=== PATIENT | female | born 1960 | race Caucasian/White ===

== ENCOUNTER 2020-02-09 18:01 | Outpatient (CLI) | payer MEDICARE, SELFPAY ==
--- NOTE | 2020-02-09 | XR_ITS ---
WS: [id number] LEFT SHOULDER: 3 VIEW(S) TECHNIQUE: Internal and external rotation with Y view. HISTORY: PAIN COMPARISON: None available. No fracture or dislocation or soft tissue abnormality. Glenohumeral and AC joints are unremarkable. Calcific deposits adjacent to the lateral humeral head. XR/XR shoulder LT min 2V* [id number] IMPRESSION: Mild LEFT rotator cuff calcific tendinitis.
--- NOTE | 2020-02-09 | XR_ITS ---
WS: [id number] LEFT HUMERUS: 2 VIEW(S) TECHNIQUE: AP and lateral. HISTORY: PAIN COMPARISON: None available. No acute fracture or dislocation. No joint or soft tissue abnormality. 5 mm calcification density over the posterior lateral humeral head. XR/[place] [id number] IMPRESSION: Calcific tendinitis LEFT rotator cuff.
== END 2020-02-09 18:02 | disposition home or self-care (01) ==
PROVIDERS: PCP Nurse Practitioner Family; Visit Provider Nurse Practitioner Family
DX: M79.602 Pain in left arm (principal); M75.32 Calcific tendinitis of left shoulder
CPT/HCPCS: 73030; 73060

== ENCOUNTER → 2020-02-20 15:17 | Outpatient (BNVA) | payer MEDICARE, SELFPAY | PROVIDERS: PCP Nurse Practitioner Family; Visit Provider Nurse Practitioner Family | DX: M79.673 Pain in unspecified foot (principal) | CPT/HCPCS: 73630 ==

== ENCOUNTER 2023-06-17 12:37 | Outpatient (CLI) | payer MEDICARE, SELFPAY ==
--- NOTE | 2023-06-17 13:11 | MM_ITS ---
WS: [id number] DIAGNOSTIC LEFT DIGITAL TOMOSYNTHESIS MAMMOGRAPHY WITH CAD. LEFT breast ultrasound, limited HISTORY: ANNUAL - HX BR CA;LT MST/LUMP BEHIND NIPPLE COMPARISON: 03/25/2019 and 03/12/2019 Technique: CC, MLO and ML views. Spot compression LEFT CC. Breast composition: The breasts are heterogeneously dense, which may obscure small masses. There is a biopsy clip in the anterior LEFT breast just posterior to the nipple. Just inferior to the biopsy cl ip there is a 7 mm partially obscured nodule. This corresponds to the palpable abnormality. Ultrasoun d to follow. LEFT breast ultrasound, limited. In the area of the palpable mass there is a cyst measuring 9 x 8 x 8 mm which corresponds to the mamm ographic abnormality also. There is an adjacent duct which is mildly prominent. No soft tissue solid masses are identified. IMPRESSION: MM/[place] [id number] BI-RADS: 2-Benign FOLLOW UP: 1 Year Follow-up Palpable area LEFT breast corresponds to a benign cyst.
--- NOTE | 2023-06-17 13:44 | US_ITS ---
WS: [id number] DIAGNOSTIC LEFT DIGITAL TOMOSYNTHESIS MAMMOGRAPHY WITH CAD. LEFT breast ultrasound, limited HISTORY: ANNUAL - HX BR CA;LT MST/LUMP BEHIND NIPPLE COMPARISON: 03/25/2019 and 03/12/2019 Technique: CC, MLO and ML views. Spot compression LEFT CC. Breast composition: The breasts are heterogeneously dense, which may obscure small masses. There is a biopsy clip in the anterior LEFT breast just posterior to the nipple. Just inferior to the biopsy cl ip there is a 7 mm partially obscured nodule. This corresponds to the palpable abnormality. Ultrasoun d to follow. LEFT breast ultrasound, limited. In the area of the palpable mass there is a cyst measuring 9 x 8 x 8 mm which corresponds to the mamm ographic abnormality also. There is an adjacent duct which is mildly prominent. No soft tissue solid masses are identified. IMPRESSION: US/US breast LT limited* [id number] BI-RADS: 2-Benign FOLLOW UP: 1 Year Follow-up Palpable area LEFT breast corresponds to a benign cyst.
== END 2023-06-17 12:38 | disposition home or self-care (01) ==
PROVIDERS: PCP Nurse Practitioner Family; Visit Provider Nurse Practitioner Family
DX: N63.42 Unspecified lump in left breast, subareolar (principal); Z85.3 Personal history of malignant neoplasm of breast; Z90.12 Acquired absence of left breast and nipple
CPT/HCPCS: 76642; 77061; G0279

== ENCOUNTER 2025-02-11 17:26 | Inpatient (IN) | payer MEDICARE, SELFPAY ==
[2025-02-11] VITALS (11 sets, daily range): BP systolic 130–159; BP diastolic 75–93; PULSE 81–115; RESP 18–20; TEMP 37.2–39.4; O2SAT 90–94; BMI 30.2
--- NOTE | 2025-02-11 17:42 | XRR_ITS ---
PROCEDURE INFORMATION: Exam: XR Chest Exam date and time: 02/11/2025 5:43 PM Age: 64 years old Clinical indication: Other: Possible sepsis TECHNIQUE: Imaging protocol: Radiologic exam of the chest. Views: 1 view. COMPARISON: [place] [id number] 02/09/2020 6:34 PM FINDINGS: Lungs: Mild ill-defined opacity at the left base partially obscuring the left hemidiaphragm. No consolidation on the right. Pleural spaces: No pneumothorax or large effusion. Heart/Mediastinum: Cardiomediastinal contours are unremarkable. Bones/joints: Bones are unremarkable. XR/XR chest 1V portable [id number] IMPRESSION: Mild nonspecific opacity at the left lung base partially obscuring the left hemidiaphragm. Possible atelectasis or infection.
--- NOTE | 2025-02-11 17:43 | ECG_ITS ---
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 Measurements Intervals [place] Rate: 113 P: 39 DC: 165 QRS: 50 QRSD: 93 T: 20 QT: 269 QTc: 370 Interpretive Statements SINUS TACHYCARDIA NONSPECIFIC T-WAVE ABNORMALITY ABNORMAL RHYTHM ECG Compared to ECG 12/25/2014 09:12:31 T-wave abnormality now present Sinus rhythm no longer present Electronically Signed On 02-12-2025 14:33:33 CDT by Soraida Herrera M.D. [id number]
[2025-02-11] MEDS: sodium chloride 0.9% 2,245.29 ML 2245.29 ML IV (18:03)
[2025-02-11 18:09] LABS: Basophils # 0.1 10^3/uL (0.0-0.1); Basophils % 0.6 %; Eosinophils # 0.1 10^3/uL (0.0-0.8); Eosinophils % 0.5 %; Hematocrit 41.9 % (36-47); Lymphocytes % 6.7 %; Mean Corpuscular HGB Conc 32.5 g/dL (30-55); Mean Corpuscular Hemoglobin 27.1 pg (27-33); Mean Corpuscular Volume 83.6 fl (85-98); Mean Platelet Volume 11.3 fL (7.4-10.4); Monocytes # 0.6 10^3/uL (0.2-0.9); Monocytes % 3.8 %; Neutrophils # 13.31 10^3/uL (1.8-7.7); Neutrophils % 86.3 %; Nucleated Red Blood Cells % 0 %; Platelet Count 312 10^3/cmm (157-399); Red Blood Count 5.01 10^6/uL (3.85-5.65); Red Cell Distribution Width 14.5 % (12.1-15.1); White Blood Count 15.43 10^3/uL (3.29-11.43)
--- NOTE | 2025-02-11 18:15 | PC.NURSE ---
pt o2 sat down to 85%, pt placed on 2LNC.
--- NOTE | 2025-02-11 18:19 | W.ED.SOB ---
HPI - SOB/Dyspnea General: Chief Complaint: Shortness of Breath/Dyspnea Stated Complaint: chest congestion, sob Time Seen by Provider: 02/11/25 17:38 History of Present Illness: HPI Narrative: 64-year-old female with a history of hypothyroidism and hypertension who presents emergency room with shortness of breath. Says this been going on since yesterday. She has had some vomiting. Production of sputum with a cough. She is febrile on presentation and tachycardic. Related Data Home Medications ?Medication ?Instructions ?Recorded ?Confirmed atenolol 25 mg tablet 25 mg PO DAILY 02/20/20 02/20/20 levothyroxine 137 mcg tablet 137 mcg PO DAILY 02/20/20 02/20/20 (Levo-T) nifedipine 30 mg tablet,extended 30 mg PO DAILY 02/20/20 02/20/20 release Allergies Allergy/AdvReac Type Severity Reaction Status Date / Time vancomycin Allergy AIDE-Swell Verified 02/11/25 17:31 Lip/Tongue/Throat PFSH ED PFSH: Social History (Updated 02/20/20 @ 14:52 by Nathaly Ferraro LPN) Smoking and tobacco/nicotine status: never used tobacco/nicotine Physical Exam Narrative: EXAM NARRATIVE: General: Alert, no acute distress. Skin: Warm, dry. Head: Normocephalic, atraumatic. Neck: Supple, trachea midline. Eye: Extraocular movements are intact. Ears, nose, mouth and throat: mucosa moist. Cardiovascular: Regular, tachycardic, normal peripheral perfusion. Respiratory: Lungs are clear to auscultation, respirations are non-labored, breath sounds are equal, Symmetrical chest wall expansion. Gastrointestinal: Soft, Nontender, Non distended Musculoskeletal: Normal ROM, no deformity. Neurological: Alert and oriented, No focal neurological deficit observed. Psychiatric: Cooperative, appropriate mood & affect. Course Vital Signs: Vital signs: Vital Signs Temperature 103.0 F H 02/11/25 17:30 Pulse Rate 105 H 02/11/25 21:30 Respiratory Rate 18 02/11/25 18:24 Blood Pressure 159/93 02/11/25 21:30 Pulse Oximetry 92 02/11/25 21:30 Oxygen Delivery Me thod Nasal Cannula 02/11/25 21:30 Oxygen Flow Rate 5 02/11/25 18:24 MDM - SOB/Dyspnea Medical Decision Making Differential diagnosis for patient with shortness of breath includes but is not limited to and based on the above HPI, review of systems and physical exam: Pneumonia. Bronchitis. Asthma or COPD with acute exacerbation. Acute coronary syndrome / [place]. Pulmonary embolism. Anxiety. Congestive heart failure. Viral infections including influenza and Covid-19. Atrial fibrillation. Anxiety. Pleural effusion. Pneumothorax. Orders placed to evaluate differential diagnosis based on the above differential, HPI and physical exam Chest x-ray: Nonspecific opacity at the left lung base. Possible atelectasis or infection.. No pneumothorax. This was reviewed and interpreted by myself the emergency room physician. I also reviewed the radiology report. AB.4 02/26/1956 with an O2 sat of 88% on 3 L nasal cannula. Oxygen was turned up at this time. Hypoxemia without hypercapnia. Lab Review: Laboratory results were reviewed and interpreted by myself the emergency room physician. Leukocytosis with white count 15,000. No anemia. Renal function is mildly elevated at 17 and 1.2. No previous lab work for comparison. CTA of the chest was ordered secondary to hypoxemia, tachycardia and an elevated D-dimer. No PE. There is opacities in the right middle lobe consistent with bronchiolitis. Dependent consolidation and volume loss in both lower lobes that is likely infectious. Small pleural effusions bilaterally. This was reviewed and interpreted by myself the emergency room physician. I also reviewed the radiology report. I reviewed the patient's medical record. Reexamination: Patient is continue to require 5 L nasal cannula with O2 sats in the low 90s. No altered mental status. No focal motor deficits. Consultation: I spoke with Dr. Plummer who is on-call for the hospitalist service who agrees to admission. Assessment and plan: Pneumonia Hypoxemia Pleural effusions ?Patient requiring 5 L nasal cannula with O2 sats in the low 90s. -Lactic acid is 1.9. However white count is up. Patient is febrile. She was little tachycardic but her blood pressures remain normal. She does have some leukocytosis. Borderline for sepsis. -2.25 L normal saline bolus. 30 mL/kg normal saline bolus -antibiotics were administered. Rocephin and azithromycin. -Sepsis quality measures. -Lactic acid with a reflex was ordered. -Blood cultures were ordered. -I discussed the patient with the hospitalist on-call who is admitting the patient. - Discussed findings and plan with patient. Answered any questions. - All laboratory values were reviewed and interpreted personally by myself, the ER physician - All imaging was reviewed and interpreted personally by myself, the ER physician. - Evaluation and treatment of this problem were appropriate in the emergency setting Critical care -I spent a total of >35 minutes of critical care time managing the patient, independent of any other practitioner. -The time involved in the performance of separately reportable procedures was not counted towards critical care time. Lab Data 02/11/25 17:50 02/11/25 20:44 Labs/Radiology: Radiology Impressions Chest X-Ray 02/11/25 17:42 IMPRESSION: Mild nonspecific opacity at the left lung base partially obscuring the left hemidiaphragm. Possible atelectasis or infection. Chest CTA 02/11/25 18:30 IMPRESSION: 1. No pulmonary embolism. 2. Dependent consolidation and volume loss in both lower lobes. Some component of atelectasis is present. Superimposed infection is not excluded. 3. Mild opacity in the right middle lobe consistent with low-grade infectious bronchiolitis. 4. Small simple dependent bilateral pleural effusions. 5. Incidental findings above. Laboratory Results WBC 15.43 10^3/uL (3.29-11.43) H 02/11/25 17:50 RBC 5.01 10^6/uL (3.85-5.65) 02/11/25 17:50 Hgb 13.60 g/dL (11.27-16.99) 02/11/25 17:50 Hct 41.9 % (36-47) 02/11/25 17:50 MCV 83.6 fl (85-98) L 02/11/25 17:50 MCH 27.1 pg (27-33) 02/11/25 17:50 MCHC 32.5 g/dL (30-55) 02/11/25 17:50 RDW 14.5 % (12.1-15.1) 02/11/25 17:50 Plt Count 312 10^3/cmm (157-399) 02/11/25 17:50 MPV 11.3 fL (7.4-10.4) H 02/11/25 17:50 Neut % (Auto) 86.3 % 02/11/25 17:50 Lymph % (Auto) 6.7 % 02/11/25 17:50 Baker % (Auto) 3.8 % 02/11/25 17:50 Eos % (Auto) 0.5 % 02/11/25 17:50 Baso % (Auto) 0.6 % 02/11/25 17:50 Neut # (Auto) 13.31 10^3/uL (1.8-7.7) H 02/11/25 17:50 Lymph # (Auto) 1.0 10^3/uL (0.8-4.8) 02/11/25 17:50 Baker # (Auto) 0.6 10^3/uL (0.2-0.9) 02/11/25 17:50 Eos # (Auto) 0.1 10^3/uL (0.0-0.8) 02/11/25 17:50 Baso # (Auto) 0.1 10^3/uL (0.0-0.1) 02/11/25 17:50 Nucleated RBC % (auto) 0 % 02/11/25 17:50 Nucleated RBCs # 0.0 /100WBC 02/11/25 17:50 D-Dimer 3.49 ug/mLFEU (0-0.59) H 02/11/25 17:50 Specimen Type Arterial 02/11/25 18:08 Sample Site Radial, left 02/11/25 18:08 ABG pH 7.46 (7.35-7.45) H 02/11/25 18:08 ABG pCO2 28.1 mmHg (35-45) L 02/11/25 18:08 ABG pO2 54.1 mmHg (80.0-100.0) L 02/11/25 18:08 ABG PO2/FiO2 Ratio 169 02/11/25 18:08 ABG HCO3 19.8 mmol/L (22-26) L 02/11/25 18:08 ABG O2 Saturation 88.9 02/11/25 18:08 ABG Base Excess -2.8 mmol/L (-2.0-2.0) L 02/11/25 18:08 Kevin Test Pos 02/11/25 18:08 A-a O2 Gradient 17.8 mmHg (5-10) H 02/11/25 18:08 Hematocrit 40.7 % (37-47) 02/11/25 18:08 Hgb O2 Saturation 88.3 % (95-100) L 02/11/25 18:08 Carboxyhemoglobin 0.2 %THgb (0.4-20.1) L 02/11/25 18:08 Methemoglobin 0.6 % (0.4-1.5) 02/11/25 18:08 Total Hemoglobin 13.3 g/dL (12-16) 02/11/25 18:08 Sodium 137.0 mmol/L (131-143) 02/11/25 18:08 Potassium 3.4 mmol/L (3.5-5.0) L 02/11/25 18:08 Glucose 151.0 mg/dL (70-115) H 02/11/25 18:08 Ionized Calcium 1.0 mmol/L (1.1-1.4) L 02/11/25 18:08 O2 Delivery Device Nc 02/11/25 18:08 O2 Liters/Min 3.0 % 02/11/25 18:08 FiO2 32.0 % 02/11/25 18:08 Community Resource Consultant ID [place] 02/11/25 18:08 Sodium 135 mmol/L (136-145) L 02/11/25 20:44 Potassium 3.6 mmol/L (3.5-5.1) 02/11/25 20:44 Chloride 103 mmol/L (98-107) 02/11/25 20:44 Carbon Dioxide 17 mmol/L (22-29) L 02/11/25 20:44 Anion Gap 18.6 (5-19) 02/11/25 20:44 BUN 17 mg/dL (8-23) 02/11/25 20:44 Creatinine 1.2 mg/dL (0.5-0.9) H 02/11/25 20:44 GFR Calculation 44.9 mL/min (90-130) L 02/11/25 20:44 Glucose 113 mg/dL (65-115) 02/11/25 20:44 Calculated Osmolality 282 mOsm/kg (285-295) L 02/11/25 20:44 Lactic Acid 1.9 mmol/L (0.5-2.2) 02/11/25 17:50 Calcium 7.3 mg/dL (8.5-10.5) L 02/11/25 20:44 Total Bilirubin 0.3 mg/dL (0.15-1.2) 02/11/25 20:44 AST 18 U/L (0-32) 02/11/25 20:44 ALT 18 U/L (0-33) 02/11/25 20:44 Alkaline Phosphatase 129 U/L (35-105) H 02/11/25 20:44 Troponin T Baseline 8 ng/L (0-10) 02/11/25 17:50 Troponin T 120 Minute 9.98 ng/L (0-10) 02/11/25 19:46 Delta Troponin T 1.98 ABS# (0-10) 02/11/25 19:46 C-Reactive Protein 203.3 mg/L (0.0-4.9) H 02/11/25 20:44 Total Protein 6.8 g/dL (6.6-8.7) 02/11/25 20:44 Albumin 3.5 g/dL (3.5-5.2) 02/11/25 20:44 Globulin 3.3 g/dL (1.3-4.6) 02/11/25 20:44 Procalcitonin 0.27 ng/mL (0-0.5) 02/11/25 20:44 Urine Color Yellow (Yellow) 02/11/25 21:20 Urine Appearance Clear (CLEAR) 02/11/25 21:20 Urine pH 5.5 (5-7) 02/11/25 21:20 Ur Specific [place] 1.024 (1.005-1.030) 02/11/25 21:20 Urine Protein Trace (Negative) A 02/11/25 21:20 Urine Glucose (UA) Negative (Normal) 02/11/25 21:20 Urine Ketones Negative (Negative) 02/11/25 21:20 Urine Blood Negative (Negative) 02/11/25 21:20 Urine Nitrate Negative (Negative) 02/11/25 21:20 Urine Bilirubin Negative (Negative) 02/11/25 21:20 Urine Urobilinogen 0.2 mg/dL (Negative) 02/11/25 21:20 Ur Leukocyte Esterase Negative (Negative) 02/11/25 21:20 Urine RBC 0-2 /hpf (0-2) 02/11/25 21:20 Urine WBC 0-5 /hpf (0-5) 02/11/25 21:20 Ur Squamous Epith Cells 0-5 /hpf (0-5) 02/11/25 21:20 Amorphous Sediment Not Reportable 02/11/25 21:20 Urine Bacteria None seen /hpf (NONE) 02/11/25 21:20 Hyaline Casts 0.81 /lpf 02/11/25 21:20 All radiology interpretation(s) finalized by discharge Discharge Plan Discharge Patient Disposition: Admitted As Inpatient Clinical Impression: Pneumonia, Hypoxemia Condition: Stable Coding Level of Care Code ED Web Services Developer for Dyan Phillip
[2025-02-11 18:20] LABS: ABG PCO2 28.1 mmHg (35-45); ABG PH Result 7.46 (7.35-7.45); Alveolar-Arterial Oxygen Gradi 17.8 mmHg (5-10); Arterial Blood Gas Hematocrit 40.7 % (37-47); Base Excess ABG -2.8 mmol/L (-2.0-2.0); Blood Gas Allen Test Pos; Blood Gas Operator Identificat MONRO; Blood Gas Sample Site Radial, left; Blood Gas Sample Type Arterial; Carboxyhemoglobin 0.2 %THgb (0.4-20.1); HCO3 ABG 19.8 mmol/L (22-26); HGB O2 Sat 88.3 % (95-100); Methemoglobin 0.6 % (0.4-1.5); Oxygen Device NC; Oxygen Saturation ABG 88.9; PO2 ABG 54.1 mmHg (80.0-100.0); PO2 FiO2 Ratio Arterial Blood 169; Potassium Level - ABG 3.4 mmol/L (3.5-5.0); Total Hemoglobin 13.3 g/dL (12-16)
--- NOTE | 2025-02-11 18:25 | PC.NURSE ---
pt NC up to 5L NC to maintain O2 sat above 90%. currently 92% 5LNC.
--- NOTE | 2025-02-11 18:30 | CTR_ITS ---
PROCEDURE INFORMATION: Exam: CTA Chest With Contrast Exam date and time: 02/11/2025 7:29 PM Age: 64 years old Clinical indication: Abnormal findings; Abnormal diagnostic tests; Elevated d-dimer; Shortness of breath and other: Tachycardia; Prior surgery; Surgery date: 6+ months; Surgery type: Mastectomy with augmentation; SOB with tachycardia and elevated dimer. History of breast cancer. ; Additional info: Hypoxemia, tachycardia TECHNIQUE: Imaging protocol: Computed tomographic angiography of the chest with contrast. Exam focused on the arteries. 3D rendering (Not supervised by radiologist): MIP and/or 3D reconstructed images were created by the technologist. Radiation optimization: All CT scans at this facility use at least one of these dose optimization techniques: automated exposure control; mA and/or kV adjustment per patient size (includes targeted exams where dose is matched to clinical indication); or iterative reconstruction. Contrast material: OMNI 350; Contrast volume: 52 ml; Contrast route: INTRAVENOUS (IV); COMPARISON: CR (CHEST, ) 02/11/2025 5:43 PM RADIATION DOSE METRICS: Total DLP (mGy-cm): 346.98 FINDINGS: Pulmonary arteries: The pulmonary arteries are adequately opacified for evaluation to the subsegmental level. There is no filling defect to suggest embolism. Aorta: There is mild aortic atherosclerotic disease. Lungs: Mild volume loss and dependent consolidation in both lower lobes. Mild focal ill-defined branching reticulonodular opacity in the inferomedial right lower lobe right middle lobe visible on axial series 6, image 244 through 260. Trachea and bronchi are normal. Pleural spaces: Small simple dependent bilateral pleural effusions. No pneumothorax. Heart: Trace pericardial effusion. There is mild cardiac enlargement. Lymph nodes: There is no mediastinal or hilar lymphadenopathy. Diaphragm: There is a small sliding-type hiatal hernia. Liver: There is diffuse low-attenuation of the liver relative to the spleen consistent with fatty infiltration. Bones/joints: Bones are unremarkable. Soft tissues: Right mastectomy and subpectoral saline breast implant without extracapsular rupture. CT/CT angio chest PE protcl [id number] IMPRESSION: 1. No pulmonary embolism. 2. Dependent consolidation and volume loss in both lower lobes. Some component of atelectasis is present. Superimposed infection is not excluded. 3. Mild opacity in the right middle lobe consistent with low-grade infectious bronchiolitis. 4. Small simple dependent bilateral pleural effusions. 5. Incidental findings above.
[2025-02-11 18:57] LABS: Troponin(5th) Baseline 8 ng/L (0-10)
[2025-02-11 18:59] LABS: D Dimer 3.49 ug/mLFEU (0-0.59)
[2025-02-11 19:00] LABS: Lactic Sepsis W/Reflex 1.9 mmol/L (0.5-2.2)
[2025-02-11] MEDS: iohexol 350 mg/mL 500 mL Btl (per mL) IV (19:29)
--- NOTE | 2025-02-11 19:43 | ECG_ITS ---
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 Measurements Intervals [place] Rate: 105 P: 0 NE: 0 QRS: 59 QRSD: 90 T: 5 QT: 301 QTc: 398 Interpretive Statements SUPRAVENTRICULAR TACHYCARDIA NONSPECIFIC T-WAVE ABNORMALITY ABNORMAL RHYTHM ECG Compared to ECG 02/11/2025 17:42:58 Sinus tachycardia no longer present T-wave abnormality still present Baseline artifacts, need to repeat Electronically Signed On 02-12-2025 14:37:15 CDT by Soraida Herrera M.D. [email or web address] [id number]
[2025-02-11 20:11] LABS: Troponin 5 2HR 9.98 ng/L (0-10); Troponin 5 2HR Delta 1.98 ABS# (0-10)
[2025-02-11 21:06] LABS: Alanine Aminotransferase 18 U/L (0-33); Albumin Level 3.5 g/dL (3.5-5.2); Alkaline Phosphatase 129 U/L (35-105); Anion Gap 18.6 (5-19); Aspartate Amino Transferase 18 U/L (0-32); Blood Urea Nitrogen 17 mg/dL (8-23); C Reactive Protein 203.3 mg/L (0.0-4.9); Calcium 7.3 mg/dL (8.5-10.5); Carbon Dioxide 17 mmol/L (22-29); Chloride 103 mmol/L (98-107); Creatinine Clr Calc Pharmacy 43.6785; Globulin 3.3 g/dL (1.3-4.6); Glomerular Filtration Rate 44.9 mL/min (90-130); Glucose 113 mg/dL (65-115); Osmolality Calculated 282 mOsm/kg (285-295); Potassium 3.6 mmol/L (3.5-5.1); Sodium 135 mmol/L (136-145); Total Bilirubin 0.3 mg/dL (0.15-1.2); Total Protein 6.8 g/dL (6.6-8.7)
[2025-02-11 21:13] LABS: Procalcitonin 0.27 ng/mL (0-0.5)
[2025-02-11] MEDS: acetaminophen 500 mg Tablet 1000 MG PO (21:26)
[2025-02-11] MEDS: AZITHROMYCIN ADD-Vantage 500 MG in 0.9% NaCl ADD-Vantage 250 ML 250 MG IV (21:28)
[2025-02-11] MEDS: cefTRIAXone 1,000 mg SDV 1000 MG IVP (21:28)
[2025-02-11 21:43] LABS: Bilirubin Urine Negative (Negative); Blood Urine Negative (Negative); Glucose Urine UA Negative (Normal); Ketones Urine Negative (Negative); Leukocyte Esterase Urine Negative (Negative); Nitrate Urine Negative (Negative); Protein Urine Trace (Negative); Specific Gravity, Urine 1.024 (1.005-1.030); Urine Appearance Clear (CLEAR); Urine Color Yellow (Yellow); Urobilinogen Urine 0.2 mg/dL (Negative); pH Urine 5.5 (5-7)
[2025-02-11 21:48] LABS: Add Urine Microscopic? YES; Bacteria Urine None Seen /hpf; Hyaline Casts Urine 0.81 /lpf; RBC Urine 0-2 /hpf (0-2); Squamous Epithelial Cell Urine 0-5 /hpf (0-5); WBC Urine 0-5 /hpf (0-5)
--- NOTE | 2025-02-11 22:52 | P.HP_ITS ---
Providers/Chief Complaint 2 Admitting Physician: Randolph Plummer MD Primary Care Provider: Radha Sethi Chief Complaint: chest congestion, sob History of Present Illness Patience Knight is a 64 year old female typically in good health states she was seen on Friday with her doctor and followed up on Friday doing fine but Friday developed temp 102.9 and today 103-104 with fevers chills diaphoresis myalgias. She denies cough and specifically no cough production. She lives with her and granddaughter who is 15 and neither of them are sick. Patient has nausea vomiting diarrhea headaches. COVID was negative at the clinic. She has dyspnea on exertion and shortness of breath for the last 2 days. 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 Patient also had right breast cancer treated with mastectomy and chemo but no radiation in 2004 Miscellaneous denies sleep apnea carotid disease stroke. She does have hypertension hyperlipidemia Psychiatric she has had depression treated with escitalopram and doing okay Medications/Allergies Home Medications ?Medication ?Instructions ?Recorded ?Confirmed ?Last Taken ?Type atenolol 25 mg tablet 25 mg PO DAILY 02/20/2001/31 Unknown History levothyroxine 137 mcg tablet 137 mcg PO DAILY 02/20/20 02/20/20 Unknown History (Levo-T) nifedipine 30 mg tablet,extended 30 mg PO DAILY 02/20/20 Unknown History release Allergies Allergy/AdvReac Type Severity Reaction Status Date / Time vancomycin Allergy ALGY-Swell Verified 02/11/25 17:31 Lip/Tongue/Throat PFSH Acute 2 PFSH: Social History (Updated 02/11/25 @ 22:56 by Randolph Plummer MD) Smoking and tobacco/nicotine status: never used tobacco/nicotine Alcohol intake: never Substance/Drug Use: never Additional social history: She wants full code as discussed with Randolph Plummer MD on 02/11/2025 Marital status: Vitals/I&O/Wt Last Vital Signs Temp 99.2 F 02/11/25 22:29 Pulse 95 02/11/25 22:29 Resp 20 H 02/11/25 22:29 BP 133/81 02/11/25 22:29 Pulse Ox 91 02/11/25 22:29 O2 Del Method Nasal Cannula 02/11/25 22:29 O2 Flow Rate 5 02/11/25 22:29 02/11/25 02/11/25 02/11/25 06:59 14:59 22:59 Intake Total 2495.29 / 2495.29 Balance 2495.29 / 2495.29 Weight last 48 hrs Weight 74.843 kg Physical Exam 2 Narrative: General well-developed well-nourished overweight female appears sick Skin damp warm CV regular rate and rhythm Lungs left basilar crackles cleared with deep breaths and coughing air movement is good no wheezing Abdomen positive bowel sounds soft nontender Calves no tenderness cords pretrip edema Oropharynx edentulous Mallampati 1 Mentation alert and orient x 3 Data 02/11/25 17:50 02/11/25 20:44 Micro: Microbiology 02/11/25 18:14 Blood Culture - Preliminary Blood SPECIMEN COLLECTED 02/11/25 17:50 Blood Culture - Preliminary Blood SPECIMEN COLLECTED A&P Assessment and plan (1) Pneumonia: With high fever and myalgias with little or no cough this is suspicious for viral illness will check flu and RSV. Will cover with Rocephin and azithromycin started in the emergency department and await blood cultures. (2) Hypoxemia: Hypoxemia requiring 5 L of oxygen and typically on no oxygen and is not a smoker. Patient be treated with Decadron. Note C-reactive protein markedly elevated at 200 we will cover with Lovenox for DVT prophylaxis PDMP PDMP Reviewed: Not Reviewed Attestations 2 Medical Necessity Statement*: Patient with hypoxemia and high fever anticipate greater than 2 midnights in the hospital Coding Level of Care Code Acute Code for [facility] Fwd Diagnoses Pneumonia J18.9 Hypoxemia R09.02 Time Spent (min) 70
[2025-02-11] MEDS: sodium chlor 0.9% + KCl 20 mEq 20 MEQ/1,000 ML BAG 100 MEQ IV (23:41)
[2025-02-11] MEDS: enoxaparin 40 mg/0.4 mL Syringe SUBCUT (23:46)
--- NOTE | 2025-02-11 23:56 | ECG_ITS ---
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 Measurements Intervals [place] Rate: 81 P: 25 TN: 163 QRS: 46 QRSD: 93 T: 9 QT: 386 QTc: 448 Interpretive Statements SINUS RHYTHM NONSPECIFIC T-WAVE ABNORMALITY Compared to ECG 02/11/2025 19:36:58 Supraventricular tachycardia no longer present T-wave abnormality still present Electronically Signed On 02-12-2025 14:36:29 CDT by Soraida Herrera M.D. [email or web address] [id number]
[2025-02-12] VITALS (13 sets, daily range): BP systolic 82–149; BP diastolic 64–85; PULSE 72–87; RESP 18–28; TEMP 36.3–37.6; O2SAT 92–98
[2025-02-12 01:06] LABS: Influenza A NEGATIVE (Negative); Influenza B NEGATIVE (Negative); Respiratory Syncytial Virus Ce NEGATIVE (Negative); SARS-CoV-2 PCR NEGATIVE (Negative)
[2025-02-12] MEDS: acetaminophen 325 mg Tablet 650 MG PO ×3 (03:31→19:59)
[2025-02-12] MEDS: dexamethasone 4 mg Tablet PO (03:32)
[2025-02-12 04:43] LABS: Basophils # 0.1 10^3/uL (0.0-0.1); Basophils % 0.6 %; Eosinophils % 0.3 %; Hematocrit 36.8 % (36-47); Lymphocytes # 1.5 10^3/uL (0.8-4.8); Lymphocytes % 11.4 %; Mean Corpuscular HGB Conc 32.9 g/dL (30-55); Mean Corpuscular Hemoglobin 27.4 pg (27-33); Mean Corpuscular Volume 83.3 fl (85-98); Mean Platelet Volume 11.1 fL (7.4-10.4); Monocytes # 0.7 10^3/uL (0.2-0.9); Monocytes % 5.6 %; Neutrophils # 10.56 10^3/uL (1.8-7.7); Neutrophils % 79.7 %; Nucleated Red Blood Cells % 0 %; Platelet Count 265 10^3/cmm (157-399); Red Blood Count 4.42 10^6/uL (3.85-5.65); Red Cell Distribution Width 14.2 % (12.1-15.1); White Blood Count 13.25 10^3/uL (3.29-11.43)
[2025-02-12 04:52] LABS: Anion Gap 18.3 (5-19); Blood Urea Nitrogen 15 mg/dL (8-23); Calcium 7.6 mg/dL (8.5-10.5); Carbon Dioxide 20 mmol/L (22-29); Chloride 104 mmol/L (98-107); Glomerular Filtration Rate 49.7 mL/min (90-130); Glucose 119 mg/dL (65-115); Osmolality Calculated 290 mOsm/kg (285-295); Potassium 3.3 mmol/L (3.5-5.1); Sodium 139 mmol/L (136-145)
[2025-02-12] MEDS: levothyroxine 137 mcg Tablet PO (05:43)
[2025-02-12] MEDS: azithromycin 250 mg Tablet 500 MG PO (09:21)
[2025-02-12] MEDS: sodium chlor 0.9% + KCl 20 mEq 20 MEQ/1,000 ML BAG 100 MEQ IV ×2 (09:24→20:08)
[2025-02-12 09:38] LABS: Estmated Average Glucose 128; Hemoglobin A1C 6.1 % (4.0-6.0)
[2025-02-12 09:51] LABS: Procalcitonin 0.32 ng/mL (0-0.5); Thyroid Stimulating Hormone 0.02 uIU/mL (0.27-4.20)
[2025-02-12] MEDS: levalbuterol 0.63 mg/3 mL Neb INHALATION ×3 (09:53→22:20)
[2025-02-12] MEDS: ipratropium 0.5 mg/2.5 mL Neb INHALATION ×3 (09:53→22:20)
[2025-02-12] MEDS: budesonide 0.5 mg/2 mL Neb INHALATION ×2 (09:53→22:20)
[2025-02-12 10:02] LABS: Iron 16 ug/dL (37-145); Percent Saturation 7.1 % (20-50); Total Iron Binding Capacity 223 mcg/dl; Unsaturated Iron Binding 207 ug/dL (112-347)
[2025-02-12 10:12] LABS: Vitamin B12 > 2000 pg/mL (232-1245)
[2025-02-12] MEDS: doxycycline 100 mg Tablet PO ×2 (10:28→17:57)
--- NOTE | 2025-02-12 11:40 | PC.CHAP ---
Pastoral Care Encounter/Spiritual Assessment Type of Contact [] Declined wood calker visit [] Patient/Family/Request visit [] Outpatient visit [] Follow-up visit [] Physician referral [] Code/Alert [x] Routine visit [] Staff referral [] Actively dying [x] Patient sleeping [] Family support [] [] Out of room [] Palliative care [] [] Receiving care in room [] Pre-surgical visit [] Trauma [] Long length of stay [] ICU visit [] Other: Relational/Emotional Strength [] Patient feels connected with others/family/visitors/staff [] Distress [] Loneliness/isolation [] Abandonment Spirituality of Patient [] Person of Anupama [] Attends Judaism of their Anupama [] Believes in Prayer [] Reads Bible or Islam materials [] There are Spiritual issues to be addressed Manager Code Interventions [] Prayer [] Active listening [] Non-anxious presence [] Spiritual/emotional support [] Crisis/trauma care [] Spiritual counseling [] Bereavement support [] Provided bereavement packet [] Provided Bible/devotional materials [] Provided toy/stuffed animal, coloring book to patient or family member [] Provided Communion [] Anointing/[place] [] Salvation [] Completed spiritual assessment [] Other: Impact on Illness or Injury [] Angry [] Fearful [] Anxious [] Often cries [] Exhaustion [] Unable to work [] Unable to attend latter-day [] Unable to walk/stand [] Unable to read [] Unable to drive [] Unable to eat/drink [] Unable to sleep [] Unable to be with family [] Patient intubated [] Other: Summary Time spent with patient
[2025-02-12 14:09] LABS: MRSA PCR OZH (swab) NOT DETECTED (Not Detecte)
--- NOTE | 2025-02-12 15:08 | P.PN_ITS ---
Subjective 2 Subjective: Admitted overnight. H&P and labs appreciated. Examination patient lying comfortably in bed. Still requiring up to 3 L of oxygen supplementation. States myalgias improved. Denies any nausea, vomiting, headache. Complaining of diarrhea. States she is lactose intolerant. Vitals/I&O/Wt Last Vital Signs Temp 97.5 F L 02/12/25 12:00 Pulse 83 02/12/25 13:24 Resp 18 02/12/25 13:19 BP 110/64 02/12/25 12:00 Pulse Ox 93 02/12/25 13:19 O2 Del Method Nasal Cannula 02/12/25 13:19 O2 Flow Rate 3 02/12/25 13:19 02/12/25 02/12/25 02/12/25 06:59 14:59 22:59 Intake Total 200 / 2695.29 1691.667 / 1691.667 Balance 200 / 2695.29 1691.667 / 1691.667 Weight last 48 hrs Weight 78.5 kg Weight 78.5 kg Weight 74.843 kg Physical Exam 2 Narrative: General well-developed well-nourished overweight female appears sick Skin damp warm CV regular rate and rhythm Lungs left basilar crackles cleared with deep breaths and coughing air movement is good no wheezing Abdomen positive bowel sounds soft nontender Calves no tenderness cords pretrip edema Oropharynx edentulous Mallampati 1 Mentation alert and orient x 3 Data 02/12/25 04:05 02/12/25 04:05 Micro: Microbiology 02/11/25 18:14 Blood Culture - Preliminary Blood SPECIMEN COLLECTED 02/11/25 17:50 Blood Culture - Preliminary Blood SPECIMEN COLLECTED A&P Assessment and plan (1) Sepsis: Present on admission. SIRS: Tachycardic, Febrile, Leukocytosis Source: Pneumonia End organ damage: Acute hypoxia, acute kidney injury Lactic acid within normal limits Patient did receive full 30 mL/kg BW. Continue NS at 100 cc/h. Monitor blood pressures. Keep mean artery pressure 65 mmHg. Follow-up blood culture, urine culture, check MRSA swab, respiratory viral panel, tick panel, trend procalcitonin. Complaining of diarrhea. Check stool studies. Continue empiric IV ceftriaxone. Add azithromycin for atypical coverage. Patient does give history of tick bites recently. Add doxycycline 100 mg twice daily. De-escalate as per culture sensitivities. (2) Pneumonia: Oxygen supplementation keeping saturation over 90%. Antibiotic as above. Sputum culture when available. Respiratory viral panel. (3) Hypoxemia: Start on prednisone 40 mg oral daily. Pulmicort twice daily, ipratropium, Xopenex every 6 hour. (4) Hypertension: Goal blood pressure less than 140/90 manage with mean over 65. Takes atenolol and nifedipine at home. Blood pressure soft. Hold antihypertensive for now. (5) Hypothyroidism: Possible history of thyroid cancer in the past. Continue with home dose of levothyroxine. Check TSH, free T4 and free T3. Plan Full code Lactose-free diet Lovenox for DVT prophylaxis Famotidine for PUD prophylaxis PDMP PDMP Reviewed: Not Reviewed Attestations 2 Medical Necessity Statement*: require further hospitalization for management of sepsis in setting of hypoxia and pneumonia requiring further evaluation, soft blood pressures Diagnoses Sepsis A41.9 Pneumonia J18.9 Hypoxemia R09.02 Hypertension I10 Hypothyroidism E03.9
[2025-02-12 15:34] LABS: Free T4 Free Thyroxine 1.12 ng/dL (0.82-1.77); T3 Free 1.4 PG/ML (2.0-4.4)
[2025-02-12 16:07] LABS: Adenovirus Not Detected (NOT DETECT); Chlamydia Pneumoniae Not Detected (NOT DETECT); Coronavirus 229E,HKU1,NL63,OC4 Not Detected (NOT DETECT); Human Metapneumovirus Not Detected (NOT DETECT); Human Rhinovirus/Enterovirus Not Detected (NOT DETECT); Influenza A Not Detected (NOT DETECT); Influenza A H1 Not Detected (NOT DETECT); Influenza A H1-2009 Not Detected (NOT DETECT); Influenza A H3 Not Detected (NOT DETECT); Influenza B Not Detected (NOT DETECT); Mycoplasma Pneumoniae Not Detected (NOT DETECT); Parainfluenza Virus Type 1 Not Detected (NOT DETECT); Parainfluenza Virus Type 2 Not Detected (NOT DETECT); Parainfluenza Virus Type 3 Not Detected (NOT DETECT); Parainfluenza Virus Type 4 Not Detected (NOT DETECT); Respiratory Syncytial Virus A Not Detected (NOT DETECT); Respiratory Syncytial Virus B Not Detected (NOT DETECT); SARS-COV-2 Not Detected (NOT DETECT)
[2025-02-12] MEDS: famotidine 20 mg Tablet PO (17:57)
[2025-02-12 19:01] LABS: C.Diff PCR (Lab) NEGATIVE (Negative)
[2025-02-12] MEDS: cefTRIAXone 1,000 mg SDV 1000 MG IVP (20:00)
[2025-02-13] VITALS (13 sets, daily range): BP systolic 127–154; BP diastolic 69–92; PULSE 74–104; RESP 15–23; TEMP 37.1–37.7; O2SAT 91–98
[2025-02-13] MEDS: enoxaparin 40 mg/0.4 mL Syringe SUBCUT ×2 (00:11→23:08)
[2025-02-13] MEDS: ipratropium 0.5 mg/2.5 mL Neb INHALATION ×4 (02:03→20:22)
[2025-02-13] MEDS: levalbuterol 0.63 mg/3 mL Neb INHALATION ×4 (02:03→20:22)
[2025-02-13 04:50] LABS: Basophils # 0.1 10^3/uL (0.0-0.1); Basophils % 0.5 %; Eosinophils % 0.1 %; Hematocrit 32.2 % (36-47); Lymphocytes # 1.4 10^3/uL (0.8-4.8); Lymphocytes % 13.3 %; Mean Corpuscular Hemoglobin 27.3 pg (27-33); Mean Corpuscular Volume 85.4 fl (85-98); Mean Platelet Volume 11.7 fL (7.4-10.4); Monocytes # 0.7 10^3/uL (0.2-0.9); Monocytes % 6.6 %; Neutrophils # 7.71 10^3/uL (1.8-7.7); Neutrophils % 75.3 %; Nucleated Red Blood Cells % 0 %; Platelet Count 272 10^3/cmm (157-399); Red Blood Count 3.77 10^6/uL (3.85-5.65); Red Cell Distribution Width 14.4 % (12.1-15.1); White Blood Count 10.24 10^3/uL (3.29-11.43)
[2025-02-13 05:06] LABS: Alanine Aminotransferase 13 U/L (0-33); Albumin Level 3.4 g/dL (3.5-5.2); Alkaline Phosphatase 138 U/L (35-105); Aspartate Amino Transferase 23 U/L (0-32); Blood Urea Nitrogen 10 mg/dL (8-23); Calcium 7.8 mg/dL (8.5-10.5); Carbon Dioxide 18 mmol/L (22-29); Chloride 110 mmol/L (98-107); Creatinine Clr Calc Pharmacy 60.2792; Globulin 2.9 g/dL (1.3-4.6); Glomerular Filtration Rate 62.6 mL/min (90-130); Glucose 116 mg/dL (65-115); Osmolality Calculated 292 mOsm/kg (285-295); Sodium 141 mmol/L (136-145); Total Bilirubin 0.2 mg/dL (0.15-1.2); Total Protein 6.3 g/dL (6.6-8.7)
[2025-02-13 05:07] LABS: Anion Gap 16.3 (5-19); Potassium 3.3 mmol/L (3.5-5.1)
[2025-02-13 05:24] LABS: Folate Level 15.9 ng/mL (4.8-37.3)
[2025-02-13 05:28] LABS: Chol HDL Ratio 5.87 mg/dL (0.0-4.40); Cholesterol 176 mg/dL (0-200); HDL Cholesterol 30 mg/dL (60-100); LDL Cholesterol Calculated 100 mg/dL (50-129); Magnesium 1.5 mg/dL (1.7-2.3); Triglycerides 229 mg/dL (0-150); VLDL Cholestrol Calculation 46 mg/dL (0-30)
[2025-02-13] MEDS: acetaminophen 325 mg Tablet 650 MG PO ×2 (05:53→20:16)
[2025-02-13] MEDS: levothyroxine 137 mcg Tablet PO (05:53)
[2025-02-13] MEDS: sodium chlor 0.9% + KCl 20 mEq 20 MEQ/1,000 ML BAG 100 MEQ IV ×2 (05:54→09:08)
[2025-02-13] MEDS: budesonide 0.5 mg/2 mL Neb INHALATION ×2 (08:28→20:22)
[2025-02-13] MEDS: escitalopram 10 mg Tablet 20 MG PO (08:50)
[2025-02-13] MEDS: doxycycline 100 mg Tablet PO ×2 (08:50→17:46)
[2025-02-13] MEDS: potassium chloride ER 20 mEq Tablet 40 MEQ PO ×2 (08:50→12:30)
[2025-02-13] MEDS: famotidine 20 mg Tablet PO ×2 (08:50→17:46)
[2025-02-13] MEDS: azithromycin 250 mg Tablet 500 MG PO (08:51)
[2025-02-13] MEDS: SUMAtriptan 25 mg Tablet 100 MG PO (09:02)
--- NOTE | 2025-02-13 09:07 | USCV_ITS ---
Patience Knight Age: 64 Gender: F : 1960 Exam Date: 02/13/2025 06:39 Ordering Phys: Nikko Rodriguez MD Technologist: Gage Bettencourt [place] [facility] [place]: hypertension, chf BP: 131 / 69 HR: 86 Rhythm: Sinus Technical Quality: Adequate MEASUREMENTS (Male / Female) Normal Values 2D ECHO LV Diastolic Diameter PLAX 4.9 cm 4.2 - 5.9 / 3.9 - 5.3 cm IVS Diastolic Thickness 1.0 cm 0.6 - 1.0 / 0.6 - 0.9 cm IVS Systolic Thickness 1.2 cm LVPW Diastolic Thickness 1.4 cm 0.6 - 1.0 / 0.6 - 0.9 cm LVPW Systolic Thickness 1.9 cm LVOT Diameter 2.0 cm LV Ejection Fraction 2D Teich 64.8 % LV Ejection Fraction MOD 4C 73.9 % LV Ejection Fraction MOD 2C 68.1 % LV Ejection Fraction 2C AL 69.6 % LA Diameter 3.1 cm RA Systolic Volume 4C AL 46.5 ml RA Systolic Volume 4C MOD 47.2 ml LA Sys Volume AL 48.1 cm cubed LA Sys Volume Index AL 25.3 cm cubed/m squared Aorta at Sinotubular Diameter 2.1 cm IVC Diameter 1.6 cm M-MODE LA Ao Ratio MM 1.3 AV Cusp Separation MM 1.5 cm DOPPLER AV Peak Velocity 149.3 cm/s LVOT Peak Velocity 116.0 cm/s AV Area Cont Eq vti 3.2 cm squared AV Area Cont Eq pk 2.5 cm squared MV Peak Velocity 124.0 cm/s MV Area PHT 7.8 cm squared Mitral E to A Ratio 1.0 TR Peak Velocity 320.0 cm/s TR Peak Gradient 41.0 mmHg TR Mean Velocity 276.0 cm/s TR Mean Gradient 31.4 mmHg TR Velocity Time Integral 93.9 cm PV Peak Velocity 97.0 cm/s RV Ejection Time 0.3 s FINDINGS Left Ventricle Normal left ventricular size and systolic function, EF 68%.. No regional wall motion abnormalities. Right Ventricle The right ventricle is normal in size and function. Right Atrium The right atrium is normal in size. Left Atrium Mildly increased left atrial size . Mitral Valve Trace mitral valve regurgitation. Aortic Valve Thickened aortic valve. Tricuspid Valve Moderate tricuspid valve regurgitation. Estimated pulmonary artery peak systolic pressure 34 mmHg Pulmonic Valve Trace pulmonary valve regurgitation. Pericardium No pericardial effusion. Aorta Normal aortic annulus size. IVC Normal inferior vena cava. CONCLUSIONS Normal left ventricular size and systolic function, EF 68%.. No regional wall motion abnormalities. Mildly increased left atrial size . Thickened aortic valve. Trace mitral valve regurgitation. Moderate tricuspid valve regurgitation. Estimated pulmonary artery peak systolic pressure 34 mmHg Trace pulmonary valve regurgitation. There is no pericardial effusion. There are no intracardiac masses. No similar previous studies are available for comparison Dr Soraida Herrera MD FACC (Electronically Signed) Final Date: 13 February 2025 13:47 S
[2025-02-13] MEDS: ondansetron 2 mg/ML SDV 2 mL 4 MG IVP (09:43)
--- NOTE | 2025-02-13 11:53 | PC.NURSE ---
One of patients escitalopram fell on the floor so it was wasted, Luis RN witnessed the waste.
[2025-02-13] MEDS: loperamide 2 mg Capsule 4 MG PO (12:30)
[2025-02-13] MEDS: NIFEdipine ER (24 hr) 30 mg Tablet PO (12:30)
--- NOTE | 2025-02-13 12:50 | P.PN_ITS ---
Subjective 2 Subjective: No acute events overnight. Patient denies any nausea, vomiting, headache. Continues to have diarrhea though states feeling better than yesterday. Has remained afebrile. Vitals/I&O/Wt Last Vital Signs Temp 98.8 F 02/13/25 11:18 Pulse 81 02/13/25 11:18 Resp 18 02/13/25 11:18 BP 148/77 02/13/25 11:18 Pulse Ox 91 02/13/25 11:18 O2 Del Method Room Air 02/13/25 11:18 O2 Flow Rate 2 02/13/25 08:28 02/12/25 02/13/25 02/13/25 22:59 06:59 14:59 Intake Total 1460 / 3151.667 1216.667 / 4368.334 681.667 / 681.667 Balance 1460 / 3151.667 1216.667 / 4368.334 681.667 / 681.667 Weight last 48 hrs Weight 79.832 kg Weight 80.1 kg Weight 78.5 kg Weight 78.5 kg Weight 74.843 kg Physical Exam 2 Narrative: General well-developed well-nourished overweight female appears sick Skin damp warm CV regular rate and rhythm Lungs left basilar crackles cleared with deep breaths and coughing air movement is good no wheezing Abdomen positive bowel sounds soft nontender Calves no tenderness cords pretrip edema Oropharynx edentulous Mallampati 1 Mentation alert and orient x 3 Data 02/13/25 04:05 02/13/25 04:05 Micro: Microbiology 02/12/25 18:00 Stool Lactoferrin - Final Stool Occult Blood (FIT) - Final 02/11/25 18:14 Blood Culture - Preliminary Blood NEGATIVE TO DATE 02/11/25 17:50 Blood Culture - Preliminary Blood NEGATIVE TO DATE 02/12/25 15:00 Bacterial Antigens - Final Urine Kidney A&P Assessment and plan (1) Sepsis: Present on admission. SIRS: Tachycardic, Febrile, Leukocytosis Source: Pneumonia End organ damage: Acute hypoxia, acute kidney injury Lactic acid within normal limits Patient did receive full 30 mL/kg BW. Continue NS at 100 cc/h. Monitor blood pressures. Keep mean artery pressure 65 mmHg. Follow-up blood culture, urine culture, check MRSA swab, respiratory viral panel, tick panel, trend procalcitonin. Complaining of diarrhea. Check stool studies. Continue empiric IV ceftriaxone. Add azithromycin for atypical coverage. Patient does give history of tick bites recently. Add doxycycline 100 mg twice daily. De-escalate as per culture sensitivities. (2) Pneumonia: Oxygen supplementation keeping saturation over 90%. Antibiotic as above. Sputum culture when available. Respiratory viral panel. (3) Hypoxemia: Start on prednisone 40 mg oral daily. Pulmicort twice daily, ipratropium, Xopenex every 6 hour. (4) Hypertension: Goal blood pressure less than 140/90 manage with mean over 65. Takes atenolol and nifedipine at home. Blood pressure soft. Hold antihypertensive for now. (5) Hypothyroidism: Possible history of thyroid cancer in the past. Continue with home dose of levothyroxine. Check TSH, free T4 and free T3. Plan Full code Lactose-free diet Lovenox for DVT prophylaxis Famotidine for PUD prophylaxis Plan for the day: Continue to monitor blood cultures. Leukocytosis have resolved. For now continue with empiric IV ceftriaxone, oral azithromycin and doxycycline. Follow-up tick panel. Oxygen supplementation given saturation of 88%. Continue Pulmicort twice daily, ipratropium and Xopenex every 6 hour. Appreciate free T3 and free T4 levels. Continue with home dose of levothyroxine. Goal blood pressure less than 140/90 mmHg. Restart home dose of nifedipine. Blood pressure is better today. Continue to monitor. C. difficile negative. Diarrhea could be in setting of patient being lactose intolerant. Imodium as needed. Out of bed to chair. Patient [facility] be transferred to [facility] floor. PDMP PDMP Reviewed: Not Reviewed Attestations 2 Medical Necessity Statement*: Requires further hospitalization for management of sepsis, resolving hypoxic respiratory failure in setting of possible pneumonia Diagnoses Sepsis A41.9 Pneumonia J18.9 Hypoxemia R09.02 Hypertension I10 Hypothyroidism E03.9
[2025-02-13] MEDS: ezetimibe 10 mg Tablet PO (20:16)
[2025-02-13] MEDS: cefTRIAXone 1,000 mg SDV 1000 MG IVP (20:31)
[2025-02-13] MEDS: loperamide 2 mg Capsule PO (23:11)
[2025-02-14] VITALS (7 sets, daily range): BP systolic 130–149; BP diastolic 78–90; PULSE 73–89; RESP 16–24; TEMP 36.6–36.8; O2SAT 92–97
[2025-02-14] MEDS: levalbuterol 0.63 mg/3 mL Neb INHALATION ×2 (01:47→08:23)
[2025-02-14] MEDS: ipratropium 0.5 mg/2.5 mL Neb INHALATION ×2 (01:47→08:23)
[2025-02-14 03:38] LABS: Basophils # 0.1 10^3/uL (0.0-0.1); Basophils % 1.2 %; Eosinophils # 0.2 10^3/uL (0.0-0.8); Eosinophils % 1.8 %; Hematocrit 36.5 % (36-47); Lymphocytes % 33.3 %; Mean Corpuscular HGB Conc 32.3 g/dL (30-55); Mean Corpuscular Hemoglobin 27.4 pg (27-33); Mean Corpuscular Volume 84.7 fl (85-98); Mean Platelet Volume 10.4 fL (7.4-10.4); Monocytes # 0.6 10^3/uL (0.2-0.9); Monocytes % 6.7 %; Neutrophils # 4.76 10^3/uL (1.8-7.7); Neutrophils % 53.3 %; Nucleated Red Blood Cells % 0 %; Platelet Count 290 10^3/cmm (157-399); Red Blood Count 4.31 10^6/uL (3.85-5.65); Red Cell Distribution Width 14.8 % (12.1-15.1); White Blood Count 8.94 10^3/uL (3.29-11.43)
[2025-02-14 03:53] LABS: Magnesium 1.6 mg/dL (1.7-2.3)
[2025-02-14 03:56] LABS: Alanine Aminotransferase 17 U/L (0-33); Albumin Level 3.7 g/dL (3.5-5.2); Alkaline Phosphatase 105 U/L (35-105); Aspartate Amino Transferase 21 U/L (0-32); Blood Urea Nitrogen 7 mg/dL (8-23); Calcium 8.5 mg/dL (8.5-10.5); Carbon Dioxide 17 mmol/L (22-29); Chloride 110 mmol/L (98-107); Creatinine Clr Calc Pharmacy 60.1751; Globulin 3.1 g/dL (1.3-4.6); Glomerular Filtration Rate 62.6 mL/min (90-130); Glucose 92 mg/dL (65-115); Osmolality Calculated 290 mOsm/kg (285-295); Sodium 141 mmol/L (136-145); Total Bilirubin 0.2 mg/dL (0.15-1.2); Total Protein 6.8 g/dL (6.6-8.7)
[2025-02-14] MEDS: levothyroxine 137 mcg Tablet PO (05:54)
[2025-02-14] MEDS: budesonide 0.5 mg/2 mL Neb INHALATION (08:23)
[2025-02-14] MEDS: NIFEdipine ER (24 hr) 30 mg Tablet PO (08:45)
[2025-02-14] MEDS: escitalopram 10 mg Tablet 20 MG PO (08:45)
[2025-02-14] MEDS: doxycycline 100 mg Tablet PO (08:46)
[2025-02-14] MEDS: azithromycin 250 mg Tablet 500 MG PO (08:46)
[2025-02-14] MEDS: magnesium sulfate premix 4 GM/100 ML PREMIX IV (09:21)
[2025-02-14] MEDS: SUMAtriptan 25 mg Tablet 100 MG PO (11:10)
--- NOTE | 2025-02-14 13:17 | PM.DCS ---
Discharge Providers Date of Admission: 02/11/25 22:28 Date of Discharge: February 14, 2025 Attending Provider at Admission: Randolph Plummer MD Attending Provider at Discharge: Aldo Condon DO Primary Care Provider: Radha Sethi Diagnoses at Discharge Discharge Diagnosis (1) Sepsis: Status: Acute (2) Pneumonia: Status: Acute (3) Hypoxemia: Status: Acute (4) Hypertension: Status: Acute (5) Hypothyroidism: Status: Acute Reason for Visit Reason for Visit: chest congestion, sob Brief History: Patient presented with fever and myalgias. Hospital Course Hospital Course Patient was admitted for sepsis syndrome. She was treated for pneumonia versus tickborne illness. She responded to IV antibiotics and doxycycline pack. She was hypoxic and that has resolved and she is returned to close to her baseline. Her magnesium was low today at 1.6 she was given IV replacement and able to be discharged today. Note patient is on omeprazole 20 mg twice daily and this has been known to cause hypomagnesemia. I advised change to Pepcid if possible and continue supplementation with magnesium. Perhaps patient could make the necessary lifestyle and dietary changes to prevent reflux. Physical Exam Narrative: Alert and oriented patient ambulatory in room Heart regular normal S1-S2 without murmurs clicks gallops or rubs Lungs diminished breath sounds in the bases but otherwise clear Abdomen protuberant soft nontender nondistended positive bowel sounds extremities no clubbing cyanosis or edema Discharge Data Studies Completed and Pending Completed Studies During Hospitalization Category Date Time Status CT angio chest PE protcl [id number] Stat Cat Scan 02/11/25 18:30 Completed XR chest 1V portable [id number] Stat Exams 02/11/25 17:42 Completed CV. echo complete* [id number] Routine Ultrasound 02/13/25 09:07 Completed Pending at discharge Category Date Time Status Blood Culture Stat Lab 02/11/25 18:14 Results MAG [Magnesium] AM LABS Lab 02/15/25 04:00 Ordered OVA and Parasites, Conc and PE Routine Lab 02/12/25 18:00 Received Salmonella / Shigella / Campy Routine Lab 02/12/25 18:00 Received Tick Panel Routine Lab 02/12/25 10:55 Received Radiology Impressions Chest X-Ray 02/11/25 17:42 IMPRESSION: Mild nonspecific opacity at the left lung base partially obscuring the left hemidiaphragm. Possible atelectasis or infection. Chest CTA 02/11/25 18:30 IMPRESSION: 1. No pulmonary embolism. 2. Dependent consolidation and volume loss in both lower lobes. Some component of atelectasis is present. Superimposed infection is not excluded. 3. Mild opacity in the right middle lobe consistent with low-grade infectious bronchiolitis. 4. Small simple dependent bilateral pleural effusions. 5. Incidental findings above. Laboratory Results WBC 8.94 10^3/uL (3.29-11.43) 02/14/25 03:20 RBC 4.31 10^6/uL (3.85-5.65) 02/14/25 03:20 Hgb 11.80 g/dL (11.27-16.99) 02/14/25 03:20 Hct 36.5 % (36-47) 02/14/25 03:20 MCV 84.7 fl (85-98) L 02/14/25 03:20 MCH 27.4 pg (27-33) 02/14/25 03:20 MCHC 32.3 g/dL (30-55) 02/14/25 03:20 RDW 14.8 % (12.1-15.1) 02/14/25 03:20 Plt Count 290 10^3/cmm (157-399) 02/14/25 03:20 MPV 10.4 fL (7.4-10.4) 02/14/25 03:20 Neut % (Auto) 53.3 % 02/14/25 03:20 Lymph % (Auto) 33.3 % 02/14/25 03:20 [place] % (Auto) 6.7 % 02/14/25 03:20 Eos % (Auto) 1.8 % 02/14/25 03:20 Baso % (Auto) 1.2 % 02/14/25 03:20 Neut # (Auto) 4.76 10^3/uL (1.8-7.7) 02/14/25 03:20 Lymph # (Auto) 3.0 10^3/uL (0.8-4.8) 02/14/25 03:20 [place] # (Auto) 0.6 10^3/uL (0.2-0.9) 02/14/25 03:20 Eos # (Auto) 0.2 10^3/uL (0.0-0.8) 02/14/25 03:20 Baso # (Auto) 0.1 10^3/uL (0.0-0.1) 02/14/25 03:20 Nucleated RBC % (auto) 0 % 02/14/25 03:20 Nucleated RBCs # 0.0 /100WBC 02/14/25 03:20 D-Dimer 3.49 ug/mLFEU (0-0.59) H 02/11/25 17:50 Specimen Type Arterial 02/11/25 18:08 Sample Site Radial, left 02/11/25 18:08 ABG pH 7.46 (7.35-7.45) H 02/11/25 18:08 ABG pCO2 28.1 mmHg (35-45) L 02/11/25 18:08 ABG pO2 54.1 mmHg (80.0-100.0) L 02/11/25 18:08 ABG PO2/FiO2 Ratio 169 02/11/25 18:08 ABG HCO3 19.8 mmol/L (22-26) L 02/11/25 18:08 ABG O2 Saturation 88.9 02/11/25 18:08 ABG Base Excess -2.8 mmol/L (-2.0-2.0) L 02/11/25 18:08 Kevin Test Pos 02/11/25 18:08 A-a O2 Gradient 17.8 mmHg (5-10) H 02/11/25 18:08 Hematocrit 40.7 % (37-47) 02/11/25 18:08 Hgb O2 Saturation 88.3 % (95-100) L 02/11/25 18:08 Carboxyhemoglobin 0.2 %THgb (0.4-20.1) L 02/11/25 18:08 Methemoglobin 0.6 % (0.4-1.5) 02/11/25 18:08 Total Hemoglobin 13.3 g/dL (12-16) 02/11/25 18:08 Sodium 137.0 mmol/L (131-143) 02/11/25 18:08 Potassium 3.4 mmol/L (3.5-5.0) L 02/11/25 18:08 Glucose 151.0 mg/dL (70-115) H 02/11/25 18:08 Ionized Calcium 1.0 mmol/L (1.1-1.4) L 02/11/25 18:08 O2 Delivery Device Nc 02/11/25 18:08 O2 Liters/Min 3.0 % 02/11/25 18:08 FiO2 32.0 % 02/11/25 18:08 Breakfast Bar Attendant ID Felix 02/11/25 18:08 Sodium 141 mmol/L (136-145) 02/14/25 03:20 Potassium 4.0 mmol/L (3.5-5.1) 02/14/25 03:20 Chloride 110 mmol/L (98-107) H 02/14/25 03:20 Carbon Dioxide 17 mmol/L (22-29) L 02/14/25 03:20 Anion Gap 18.0 (5-19) 02/14/25 03:20 BUN 7 mg/dL (8-23) L 02/14/25 03:20 Creatinine 0.9 mg/dL (0.5-0.9) 02/14/25 03:20 GFR Calculation 62.6 mL/min (90-130) L 02/14/25 03:20 Glucose 92 mg/dL (65-115) 02/14/25 03:20 Estimat Average Glucose 128 02/12/25 04:05 Hemoglobin A1c 6.1 % (4.0-6.0) H 02/12/25 04:05 Calculated Osmolality 290 mOsm/kg (285-295) 02/14/25 03:20 Lactic Acid 1.9 mmol/L (0.5-2.2) 02/11/25 17:50 Calcium 8.5 mg/dL (8.5-10.5) 02/14/25 03:20 Magnesium 1.6 mg/dL (1.7-2.3) L 02/14/25 03:20 Iron 16 ug/dL (37-145) L 02/12/25 04:05 TIBC 223 mcg/dl 02/12/25 04:05 % Saturation 7.1 % (20-50) L 02/12/25 04:05 Unsat Iron Binding 207 ug/dL (112-347) 02/12/25 04:05 Total Bilirubin 0.2 mg/dL (0.15-1.2) 02/14/25 03:20 AST 21 U/L (0-32) 02/14/25 03:20 ALT 17 U/L (0-33) 02/14/25 03:20 Alkaline Phosphatase 105 U/L (35-105) 02/14/25 03:20 Troponin T Baseline 8 ng/L (0-10) 02/11/25 17:50 Troponin T 120 Minute 9.98 ng/L (0-10) 02/11/25 19:46 Delta Troponin T 1.98 ABS# (0-10) 02/11/25 19:46 Troponin T Hi Sens 6Hr 14.80 ng/L (0-10) H 02/11/25 23:44 Troponin T Hi Sens 6Hr Delta 6.80 ng/L (0-12) 02/11/25 23:44 C-Reactive Protein 203.3 mg/L (0.0-4.9) H 02/11/25 20:44 Total Protein 6.8 g/dL (6.6-8.7) 02/14/25 03:20 Albumin 3.7 g/dL (3.5-5.2) 02/14/25 03:20 Globulin 3.1 g/dL (1.3-4.6) 02/14/25 03:20 Triglycerides 229 mg/dL (0-150) H 02/13/25 04:05 Cholesterol 176 mg/dL (0-200) 02/13/25 04:05 LDL Cholesterol, Calc 100 mg/dL (50-129) 02/13/25 04:05 Total VLDL Cholesterol 46 mg/dL (0-30) H 02/13/25 04:05 HDL Cholesterol 30 mg/dL (60-100) L 02/13/25 04:05 Cholesterol/HDL Ratio 5.87 mg/dL (0.0-4.40) H 02/13/25 04:05 Vitamin B12 > 2000 pg/mL (232-1245) H 02/12/25 04:05 Folate 15.9 ng/mL (4.8-37.3) 02/13/25 04:05 Procalcitonin 0.32 ng/mL (0-0.5) 02/12/25 04:05 TSH 0.02 uIU/mL (0.27-4.20) L 02/12/25 04:05 Free T4 1.12 ng/dL (0.82-1.77) 02/12/25 04:05 Free T3 1.4 PG/ML (2.0-4.4) L 02/12/25 04:05 Urine Color Yellow (Yellow) 02/11/25 21:20 Urine Appearance Clear (CLEAR) 02/11/25 21:20 Urine pH 5.5 (5-7) 02/11/25 21:20 Ur Specific [place] 1.024 (1.005-1.030) 02/11/25 21:20 Urine Protein Trace (Negative) A 02/11/25 21:20 Urine Glucose (UA) Negative (Normal) 02/11/25 21:20 Urine Ketones Negative (Negative) 02/11/25 21:20 Urine Blood Negative (Negative) 02/11/25 21:20 Urine Nitrate Negative (Negative) 02/11/25 21:20 Urine Bilirubin Negative (Negative) 02/11/25 21:20 Urine Urobilinogen 0.2 mg/dL (Negative) 02/11/25 21:20 Ur Leukocyte Esterase Negative (Negative) 02/11/25 21:20 Urine RBC 0-2 /hpf (0-2) 02/11/25 21:20 Urine WBC 0-5 /hpf (0-5) 02/11/25 21:20 Ur Squamous Epith Cells 0-5 /hpf (0-5) 02/11/25 21:20 Amorphous Sediment Not Reportable 02/11/25 21:20 Urine Bacteria None seen /hpf (NONE) 02/11/25 21:20 Hyaline Casts 0.81 /lpf 02/11/25 21:20 Nasal MRSA (PCR) Not detected (Not Detecte) 02/12/25 12:00 Adenovirus (PCR) Not detected (NOT DETECT) 02/12/25 12:00 C. pneumoniae DNA (PCR) Not detected (NOT DETECT) 02/12/25 12:00 C. difficile (PCR) Negative (Negative) 02/12/25 18:00 Coronavirus 229E (PCR) Not detected (NOT DETECT) 02/12/25 12:00 Human Metapneumovir PCR Not detected (NOT DETECT) 02/12/25 12:00 Influenza A (H1) PCR Not detected (NOT DETECT) 02/12/25 12:00 Influenza A (PCR) Negative (Negative) 02/11/25 23:40 Influ A (H1/09) PCR Not detected (NOT DETECT) 02/12/25 12:00 Influenza A (H3) PCR Not detected (NOT DETECT) 02/12/25 12:00 Influenza Type A (PCR) Not detected (NOT DETECT) 02/12/25 12:00 Influenza Type B (PCR) Not detected (NOT DETECT) 02/12/25 12:00 M. pneumoniae (PCR) Not detected (NOT DETECT) 02/12/25 12:00 Parainfluenza 1 (PCR) Not detected (NOT DETECT) 02/12/25 12:00 Parainfluenza 2 (PCR) Not detected (NOT DETECT) 02/12/25 12:00 Parainfluenza 3 (PCR) Not detected (NOT DETECT) 02/12/25 12:00 Parainfluenza 4 (PCR) Not detected (NOT DETECT) 02/12/25 12:00 RSV (PCR) Negative (Negative) 02/11/25 23:40 RSV Type A (PCR) Not detected (NOT DETECT) 02/12/25 12:00 RSV Type B (PCR) Not detected (NOT DETECT) 02/12/25 12:00 Entero/Rhino (PCR) Not detected (NOT DETECT) 02/12/25 12:00 SARS-CoV-2 (PCR) Not detected (NOT DETECT) 02/12/25 12:00 Vitals Last Vital Signs Temp 97.8 F 02/14/25 12:00 Pulse 83 02/14/25 12:00 Resp 20 H 02/14/25 12:00 BP 149/87 02/14/25 12:00 Pulse Ox 95 02/14/25 12:00 O2 Del Method Room Air 02/14/25 12:00 O2 Flow Rate 2 02/13/25 08:28 Discharge Plan Discharge Patient Disposition: Home Condition: Stable Prescriptions: New azithromycin 250 mg Tablet 500 mg PO DAILY Qty: 5 0RF liothyronine 25 mcg Tablet 25 mcg PO DAILY Qty: 30 0RF Ferrex 150 Forte 150-25-1 mg-mcg-mg Capsule 1 cap PO BIDWM Qty: 60 0RF doxycycline monohydrate 100 mg Tablet 100 mg PO BID Qty: 14 0RF budesonide 0.5 mg/2 mL Suspension For Nebulization 0.5 mg inhalation BID.RESPIRATORY Qty: 1 0RF Continued levothyroxine [Levo-T] 137 mcg tablet 137 mcg PO DAILY nifedipine 30 mg tablet extended release 30 mg PO DAILY atenolol 25 mg tablet 25 mg PO DAILY escitalopram oxalate 20 mg tablet 20 mg PO DAILY ezetimibe 10 mg tablet 10 mg PO BEDTIME diclofenac sodium 100 mg tablet extended release 24 hr 100 mg PO DAILY sumatriptan succinate 100 mg tablet 100 mg PO DIRECTED PRN (Reason: Migraine Headache) omeprazole 20 mg capsule,delayed release(DR/EC) 20 mg PO BID Discharge Orders: Discharge Order (Routine); Ordered 02/14/25 Ordered By: Aldo Condon Referrals: Radha Sethi FNP [Primary Care Provider, [facility]] - 02/22/25 9:30 am Referral Note: Patient Instructions: Hypertension, Hypothyroidism (DC), Sepsis (DC), Hypoxemia (DC), Opioid Safety Discharge Attestations Time Spent in Discharge Care*: greater than 30 min Quality Metrics Clinical Quality Measures [ No reported AMI, CVA or VTE this stay] Coding Level of Care Code Acute Code for [facility] Fwd Diagnoses Sepsis A41.9 Pneumonia J18.9 Hypoxemia R09.02 Hypertension I10 Hypothyroidism E03.9
[2025-02-14 17:00] LABS: Lyme AB Screen <0.90 index
== END 2025-02-14 14:09 | disposition home or self-care (01) | DRG 871 ==
LOC: ER 21:20 → CSU 22:28
PROVIDERS: Student in an Organized Health Care Education/Training Program; Admitting Provider Internal Medicine; Emergency Provider Emergency Medicine; PCP Nurse Practitioner Family; Visit Provider Internal Medicine
DX: A41.9 Sepsis, unspecified organism (principal); J18.9 Pneumonia, unspecified organism; J96.91 Respiratory failure, unspecified with hypoxia; A93.8 Other specified arthropod-borne viral fevers; J90 Pleural effusion, not elsewhere classified; N17.9 Acute kidney failure, unspecified; R65.20 Severe sepsis without septic shock; I10 Essential (primary) hypertension; E03.9 Hypothyroidism, unspecified; E83.42 Hypomagnesemia; E78.5 Hyperlipidemia, unspecified; R19.7 Diarrhea, unspecified; Z85.850 Personal history of malignant neoplasm of thyroid; Z85.3 Personal history of malignant neoplasm of breast; Z90.11 Acquired absence of right breast and nipple; Z92.21 Personal history of antineoplastic chemotherapy
CPT/HCPCS: 36415; 36600; 71045; 71275; 80048; 80051; 80053; 80061; 81001; 82274; 82330; 82607; 82746; 82805; 83036; 83540; 83550; 83605; 83630; 83735; 84145; 84439; 84443; 84481; 84484; 85025; 85378; 86140; 86403; 86618; 86666; 86757; 87040; 87045; 87177; 87209; 87427; 87449; 87486; 87493; 87581; 87633; 87637; 93005; 93306; 94640; 96365; 96372; 96375; 99285; A9270; J0456; J0696; J1650; J2405; J3475; J3480; J7030; J7050; J7614; J7626; J7644; J8540; J9999; Q0144

== ENCOUNTER 2025-05-11 14:14 | Outpatient (CLI) | payer MEDICARE, SELFPAY ==
--- NOTE | 2025-05-11 14:21 | XR_ITS ---
WS: [id number] Right shoulder, 3 views, 05/11/2025 Clinical Data: PAIN IN RIGHT UPPER ARM Comparison: None. Findings: No fractures or dislocations are seen. The AC joint is normal. The adjacent right clavicle, right scapula and ribs are normal. The soft tissues are unremarkable. There are surgical clips in the right axilla. XR/XR shoulder RT min 2V* [id number] Impression: Negative right shoulder.
--- NOTE | 2025-05-11 14:22 | XR_ITS ---
WS: [id number] Right arm and humerus, 2 views AP and lateral, 05/11/2025 Clinical Data: PAIN IN RIGHT UPPER ARM Comparison: None. Findings: No fractures or dislocations are seen. The shaft of the humerus is intact. The right elbow shows no abnormalities. The soft tissues are normal. There are surgical clips in the right axilla. XR/[place] [id number] Impression: Negative right arm and humerus.
== END 2025-05-11 14:15 | disposition home or self-care (01) ==
PROVIDERS: PCP Nurse Practitioner Family; Visit Provider Nurse Practitioner Family
DX: M79.621 Pain in right upper arm (principal); M25.511 Pain in right shoulder
CPT/HCPCS: 73030; 73060

== ENCOUNTER → 2025-06-02 11:38 | Outpatient (BNVA) | payer MEDICARE, SELFPAY | PROVIDERS: PCP Nurse Practitioner Family; Visit Provider Internal Medicine | DX: E11.9 Type 2 diabetes mellitus without complications (principal); C73 Malignant neoplasm of thyroid gland; E03.9 Hypothyroidism, unspecified | CPT/HCPCS: 36415; 80053; 82310; 83970; 84432; 84439; 84443; 86800 ==

== ENCOUNTER 2025-08-02 15:20 | Outpatient (CLI) | payer MEDICARE, SELFPAY ==
[2025-08-02 16:26] LABS: Alanine Aminotransferase 30 U/L (0-33); Albumin Level 4.5 g/dL (3.5-5.2); Alkaline Phosphatase 172 U/L (35-105); Anion Gap 16.8 (5-19); Aspartate Amino Transferase 24 U/L (0-32); Blood Urea Nitrogen 22 mg/dL (8-23); Calcium 8.7 mg/dL (8.5-10.5); Carbon Dioxide 23 mmol/L (22-29); Chloride 103 mmol/L (98-107); Free T4 Free Thyroxine 1.05 ng/dL (0.82-1.77); Globulin 3.5 g/dL (1.3-4.6); Glucose 92 mg/dL (65-115); Osmolality Calculated 289 mOsm/kg (285-295); Potassium 4.8 mmol/L (3.5-5.1); Sodium 138 mmol/L (136-145); Thyroid Stimulating Hormone 0.29 uIU/mL (0.27-4.20); Total Protein 8.0 g/dL (6.6-8.7)
[2025-08-02 23:40] LABS: Calcium 8.9 mg/dL (8.5-10.5)
== END 2025-08-02 15:21 | disposition home or self-care (01) ==
LOC: LAB 15:24
PROVIDERS: PCP Nurse Practitioner Family; Visit Provider Internal Medicine
DX: E11.9 Type 2 diabetes mellitus without complications (principal); E03.9 Hypothyroidism, unspecified; C73 Malignant neoplasm of thyroid gland
CPT/HCPCS: 36415; 80053; 82310; 83970; 84432; 84439; 84443; 86800